=== PATIENT | female | born 1995 | race American Indian/Alaskan Native ===

== ENCOUNTER 2017-06-14 18:50 | Outpatient (CLI) | payer MEDICAID, OTHER ==
[2017-06-14 19:18] VITALS: BP 116/74
--- NOTE | 2017-06-14 21:45 | Ultrasound Report ---
FINAL REPORT PROCEDURE: US OB BPP WO NON-STRESS TECHNIQUE: Sonographic evaluation for breathing, movement, tone, and amniotic fluid volume was performed. CPT 41119 HISTORY: DECREASED MOVEMENT COMPARISON: No prior studies are available for comparison. FINDINGS: Amniotic fluid volume: Normal-score 2. At least one vertical pocket > 2 cm or more in vertical axis. breathing: Normal-score 2. movement: Normal-score 2. tone: Normal. Score: 8 of 8. heart rate measures 123 beats per minute. IMPRESSION: Normal biophysical profile score.
== END 2017-06-14 20:50 | disposition home or self-care (01) ==
LOC: TRG 18:50
PROVIDERS: ATTEND Obstetrics & Gynecology
DX: O47.1 False labor at or after 37 completed weeks of gestation (principal); Z3A.38 38 weeks gestation of pregnancy
CPT/HCPCS: 76819

== ENCOUNTER 2017-07-02 14:49 | Inpatient (IN) | payer MEDICAID ==
[2017-07-02] MEDS ORDERED: LACTATED RINGERS 1,000 ML ONE (16:21)
[2017-07-02 16:33] LABS: Basophils % (Auto) 0.5 % (0.0-1.8); Eosinophils # (Auto) 0.1 K/mm3 (0.0-0.4); Eosinophils % (Auto) 1.1 % (0.0-4.3); Hematocrit 30.9 % (30.3-42.9); Hemoglobin 10.7 gm/dl (10.1-14.3); Lymphocytes # (Auto) 1.3 K/mm3 (1.2-5.4); Lymphocytes % (Auto) 19.8 % (13.4-35.0); Mean Corpuscular HGB Conc 35 % (30-34); Mean Corpuscular Hemoglobin 31 pg (28-32); Mean Corpuscular Volume 90 fl (79-97); Monocytes # (Auto) 0.7 K/mm3 (0.0-0.8); Monocytes % (Auto) 11.6 % (0.0-7.3); Platelet Count 204 K/mm3 (140-440); Red Blood Count 3.46 M/mm3 (3.65-5.03); Red Cell Distribution Width 13.4 % (13.2-15.2)
[2017-07-02 16:34] LABS: Bilirubin,Urine NEG (Negative); Blood,Urine NEG (Negative); Color,Urine Straw (Yellow); Nitrite,Urine NEG (Negative); Protein,Urine <15 mg/dL mg/dL (Negative); Urobilinogen,Urine < 2.0 mg/dL (<2.0); WBC,Urine < 1.0 /HPF (0.0-6.0)
[2017-07-02 16:41] LABS: Amphetamine Screen,Urine PRESUMPTIVE NEGATIVE; Benzodiazepines Screen,Urine PRESUMPTIVE NEGATIVE; Cannabinoid Screen,Urine PRESUMPTIVE NEGATIVE; Cocaine Screen,Urine PRESUMPTIVE NEGATIVE; Methadone Screen,Urine PRESUMPTIVE NEGATIVE; Opiate Screen,Urine PRESUMPTIVE NEGATIVE
[2017-07-02 16:56] LABS: Rubella IgG Antibody Immune (Immune)
[2017-07-02 16:58] LABS: Hepatitis C Virus Antibody Non-Reactive (NonReactive)
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
[2017-07-02] MEDS ORDERED: MINERAL OIL PO PRN (18:20)
[2017-07-02] MEDS ORDERED: BRETHINE SUB-Q PRN (18:20)
[2017-07-02] MEDS ORDERED: ePHEDrine SULFATE IV PRN (18:20)
[2017-07-02] MEDS ORDERED: ZOFRAN IV PRN (18:20)
[2017-07-02] MEDS ORDERED: XYLOCAINE 2% INFILTRATI ONE (18:20)
--- NOTE | 2017-07-02 18:42 | Ultrasound Report ---
FINAL REPORT EXAM: US OB BPP WO NON-STRESS HISTORY: wellbeing TECHNIQUE: Sonographic images were performed Comparison: 06/14/2017 at which time biophysical profile score was 8/8 FINDINGS: Biophysical profile score 6/8. 0 awarded for movement. IMPRESSION: Biophysical profile score 6/8. 0 awarded for movement. INNA 5.6 centimeters. Oligohydramnios. Two vessel cord. Anterior placenta. The inferior margin is not well delineated but the cervical length images do not show previa or marginal placenta. Critical level 1 result. Findings are discussed with Suzanne Hylton nurse exploration driller on 07/02/2017 at 1838 hours.
--- NOTE | 2017-07-02 18:45 | Ultrasound Report ---
FINAL REPORT EXAM: US OB > = 14 WEEKS FETUS HISTORY: wellbeing TECHNIQUE: Obstetrical sonographic imaging was performed Comparison: 06/14/2017 at which time biophysical profile score was 8/8, estimated due date was 06/27/2017 FINDINGS: Images demonstrate single live intrauterine gestation in cephalic presentation. Anterior grade 1 placenta. Inferior placental tip is not seen to be marginal or previa based on the cervical length images. Decreased INNA 5.6 centimeters compatible with oligohydramnios. heart rate measures 141 beats per minute. Cervical length measures 2.8 centimeters. measurements with estimated gestational age as follows: Biparietal diameter 9.4 centimeters, 38 weeks 1 day Head circumference 34.2 centimeters, 39 weeks 2 days Abdominal circumference 33.5 centimeters, 37 weeks 3 days Femur length 7.1 centimeters, 36 weeks 2 days Average ultrasonographic gestational age is 37 weeks 6 days with estimated due date 07/17/2017 by today's exam. HC/AC 1.02 Cephalic index 81.1. Estimated weight 3213 grams +/-470 6 grams which is 13th percentile per the Hadlock criteria. There appears to be a 2 vessel cord. Limited anatomic survey includes the spine limited, stomach, kidneys, 2 vessel cord, 4 chamber heart. There is poor visualization of the lateral ventricles. Posterior fossa is also incompletely assessed due to the patient's gestational age. IMPRESSION: Oligohydramnios at 5.6 centimeter calculated INNA. Single live intrauterine gestation in the cephalic presentation with anterior grade 1 placenta. No previa or marginal placenta identified. The cervical images do not show placenta. Cervix length measures 2.8 centimeters. 2 vessel cord. Average ultrasonographic gestational age on today's exam is 37 weeks 6 days which may be due to asymmetric IUGR with significantly shorter femur length and borderline asymmetric IUGR with low weight. Per the Hadlock criteria, the weight is 13th percentile. Separately reported biophysical profile score 6/8. Critical level 1 report. Findings are called and discussed on 07/02/2017 at 1832 hours with Suzanne Hylton.
--- NOTE | 2017-07-02 18:49 | Event Note ---
Date: 07/02/17 (proceed with repeat section) Preop orders in EMR Pt consented. NICU and Anesthesia notified c/s @ 2100.
[2017-07-02] MEDS: LACTATED RINGERS 1,000 ML IV SCH ×3 (18:59→22:48)
[2017-07-02] MEDS ORDERED: ANCEF/STERILE WATER 2 GM/20 ML 2 GM/20 ML SYRINGE IV NR (19:00)
[2017-07-02] MEDS ORDERED: REGLAN IV ONE (19:00)
[2017-07-02] MEDS ORDERED: PITOCin/NS 20 UNIT/1000ML DRIP 20 UNITS/1,000 ML BAG IV SCH (19:00)
[2017-07-02] MEDS ORDERED: PEPCID IV ONE (19:00)
[2017-07-02] MEDS ORDERED: BICITRA PO ONE (19:00)
--- NOTE | 2017-07-02 22:45 | Event Note ---
Date: 07/02/17 c/s delayed due to other emergent c/s that have come from the floor and triage. Pt still with Cat II tracing at times so will proceed with c/s when time and staffing permits. Currently tracing is cat I.
[2017-07-02] MEDS ORDERED: SUBLIMAZE IV ONE (22:47)
[2017-07-03] MEDS ORDERED: NACL 0.9% IR ONE (00:35)
[2017-07-03] MEDS ORDERED: WATER FOR IRRIG STERILE IR ONE (00:35)
[2017-07-03] MEDS ORDERED: DIPRIVAN 10 MG/ML IV ONE (00:50)
[2017-07-03] MEDS ORDERED: METHERGINE IM ONE ×2 (00:56→06:00)
[2017-07-03] MEDS ORDERED: NARCAN 0.4 MG/1 ML IV PRN (01:39)
[2017-07-03] MEDS ORDERED: TORADOL IV PRN (01:39)
[2017-07-03] MEDS ORDERED: MYLICON PO PRN (01:39)
[2017-07-03] MEDS ORDERED: LANSINOH TP PRN (01:39)
[2017-07-03] MEDS ORDERED: TUCKS PAD TP PRN (01:39)
--- NOTE | 2017-07-03 01:46 | Operative Report ---
Operative Report Operative Report: Date of procedure: 07/03/2017 Pre-operative diagnosis: 40-6/7 weeks gestation Oligohydramnios Insufficient care in the third trimester Previous section IUGR Post-operative diagnosis: Same Procedure name(s): Repeat low transverse section via Pfannenstiel skin incision Surgeon: Dr. Merida Advertising Photographer: ORLANDO Anesthesia: Combined spinal epidural EBL: 600 mL Urine output: 150 mL of clear urine out at the end of the procedure Fluids: 1 L Findings: Liveborn male weight 6 lbs. 10 oz. Apgars of 8 and 9 at one and 5 minutes Grossly normal fallopian tubes and ovaries bilaterally Indications: Patient presents to triage stating that she wants to be delivered in that she had decreased movement. Evaluation yielded a BPP of 6 and 8 with an INNA of 5 as well as asymmetrical growth restriction. Decision made at this time to proceed with delivery. Given patient has had previous section with no medical records available decision was made to proceed with repeat section. Patient has relocated to [place] from [place] and had not had any care since May. Procedure: Patient was taking to the operating room. Patient was then prepped and draped in sterile fashion after anesthesia was found to be adequate. A low transverse skin incision was made with the scalpel through previous incisional scar and carried down to the underlying layer of fascia with the Bovie. The fascia was then incised in the midline and this incision was extended bilaterally with the Bovie. The superior aspect of the fascia was grasped with Andre clamps tented upward and dissected off of the anterior rectus muscles with the scalpel. In similar fashion the inferior aspect of the fascia was grasped with Andre clamps tented upward and dissected off of the anterior rectus muscles. The rectus muscles were then bluntly divided in the midline. The peritoneum was identified and entered into sharply. The bladder blade was placed. The bladder blade was replaced. A lower transverse uterine incision was made with the scalpel and extended bilaterally with the dissection. Artificial rupture of membranes was performed yielding lightly meconium-stained fluid. The 's head was then delivered atraumatically. The anterior shoulder and rest of infant delivered without difficulty. The umbilical cord was clamped x2. The cord was cut. The infant was then placed in sterile bassinet. The cord blood was collected. The placenta was manually extracted in its entirety. The uterus was exteriorized and cleared of all clots and debris. The uterine incision was closed using 0 Vicryl in a running locking fashion. A second imbricating layer of the same suture was then created. The posterior cul-de-sac was copiously irrigated. The uterus was returned to the abdomen. The gutters were also irrigated. The anterior rectus muscles were reapproximated using 3-0 Vicryl. The anterior rectus fascia was reapproximated using 0 Vicryl in a running fashion. The subcuticular fat was reapproximated using 2-0 Vicryl in a running fashion. The skin was reapproximated with 4-0 Monocryl in a subcuticular stitch. The patient tolerated the procedure well. Sponge lap and needle counts were all correct x3. Patient was taken to the recovery room awake and in stable condition.
[2017-07-03] MEDS ORDERED: SODIUM CHLORIDE FLUSH SYRINGE 10 ML IV NR (02:00)
[2017-07-03] MEDS ORDERED: D5LR 1,000 ML IV SCH (02:00)
[2017-07-03] MEDS: ANCEF/NS 1 GM/50 ML 1 GM/50 ML BAG IV SCH ×2 (09:17→17:31)
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
[2017-07-03 13:43] LABS: Hematocrit 31.5 % (30.3-42.9); Hemoglobin 10.9 gm/dl (10.1-14.3)
[2017-07-03] MEDS ORDERED: ceFAZolin 1 GM in NACL 0.9% 20 ML IV ONE (18:00)
[2017-07-03] MEDS ORDERED: BENADRYL PO ONE (23:00)
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
[2017-07-04] MEDS: NORCO 5/325 PO PRN ×2 (11:02→17:56)
[2017-07-04] MEDS: MOTRIN PO PRN ×2 (12:27→20:29)
--- NOTE | 2017-07-05 08:18 | Discharge Summary ---
Providers - Providers Date of Admission: 07/02/17 14:50 Date of discharge: 07/05/17 (desires d/c home ) Attending physician: SANDY WALL Primary care physician: SANDY WALL Hospitalization Reason for admission: section Delivery: Procedure: repeat low transverse Incision: normal, dry, intact Other procedures: none complications: none Discharge diagnosis: IUP at term delivered baby: male Hospital course: uncomplicated c/s , w/o concern, lochia scant, H&H stable, VSSAF. Condition at discharge: Good Disposition: DC-01 TO HOME OR SELFCARE - Discharge Diagnoses (1) delivery delivered Status: Acute Plan - Discharge Medications Prescriptions: Docusate Sodium [Colace] 100 mg PO BID PRN #60 capsule PRN Reason: Constipation Ferrous Sulfate 325 mg PO DAILY #30 tablet.dr Ibuprofen 800 mg PO Q6HR #30 tablet Lidocain2.5%/Prilocai2.5% [Emla] 1 applic TP ONCE #1 tube oxyCODONE /ACETAMINOPHEN [Percocet 5/325] 1 tab PO Q4HR #30 tab - Provider Discharge Summary Activity: routine, no sex for 6 weeks, no heavy lifting 4 weeks, no strenuous exercise Diet: routine Instructions: routine Additional instructions: [] Smoking cessation referral if applicable(refer to patient education folder for contact #) [] Refer to [facility]'s [facility] Booklet Call your doctor immediately for: * Fever > 100.5 * Heavy vaginal bleeding ( >1 pad per hour) * Severe persistent headache * Shortness of breath * Reddened, hot, painful area to leg or breast * Drainage or odor from incision. * Keep incision clean and dry at all times and follow doctor's instructions regarding bathing/showering - Follow up plan Follow up: SANDY WALL MD [Primary Care Provider] - 7 Days (Congratulations! Please call [phone] to schedule your incision check and your son's circumcision in 1 week. Bring EMLA cream to his appointment and await further instructions. Call for any questions or concerns. )
[2017-07-05 08:35] VITALS: BP 120/82
[2017-07-05] MEDS: NORCO 5/325 PO PRN (09:05)
== END 2017-07-05 15:00 | disposition home or self-care (01) | DRG 766 ==
LOC: TRG 14:49 → APU 14:50 → OB 07-03 03:04
PROVIDERS: ADMIT Obstetrics & Gynecology; ATTEND Obstetrics & Gynecology
PROC: 10D00Z1 Extraction of Products of Conception, Low, Open Approach (ICD-10-PCS; principal; 2017-07-03)
DX: O34.219 Maternal care for unspecified type scar from previous cesarean delivery (principal); O36.5990 Maternal care for other known or suspected poor fetal growth, unspecified trimester, not applicable or unspecified; Z3A.40 40 weeks gestation of pregnancy; Z37.0 Single live birth; O41.00X0 Oligohydramnios, unspecified trimester, not applicable or unspecified; O99.52 Diseases of the respiratory system complicating childbirth; J45.909 Unspecified asthma, uncomplicated; O76 Abnormality in fetal heart rate and rhythm complicating labor and delivery
CPT/HCPCS: 36415; 76805; 76819; 80307; 81001; 85014; 85018; 85025; 85660; 86592; 86706; 86762; 86803; 86850; 86900; 86901; 87806; 88307; 99211; G0463; J0690; J2210; J2405; J2590; J2704; J2765; J3010; J7120; J7121

== ENCOUNTER 2019-11-15 01:29 | Inpatient (IN) | payer OTHER ==
[2019-11-15] MEDS ORDERED: LACTATED RINGERS 1,000 ML ONE (02:56)
[2019-11-15] MEDS ORDERED: BICITRA ORAL LIQD 30ML PO ONE (03:53)
[2019-11-15] MEDS ORDERED: METOCLOPRAMIDE 10 MG/2 ML INJ IV ONE (03:53)
[2019-11-15] MEDS ORDERED: FAMOTIDINE 20 MG/2 ML INJ IV ONE (03:53)
[2019-11-15] MEDS ORDERED: BUTORPHANOL 2 MG/1 ML INJ IV ONE (03:55)
[2019-11-15] MEDS ORDERED: OXYTOCIN 20 UNIT/1000ML DRIP 20 UNITS/1,000 ML BAG IV SCH ×2 (04:00→05:00)
[2019-11-15] MEDS ORDERED: LACTATED RINGERS 1,000 ML IV SCH (04:00)
[2019-11-15] MEDS ORDERED: DEXMEDETOMIDINE 200 MCG/2 ML VIAL IV ONE (04:09)
[2019-11-15] MEDS ORDERED: METHYLERGONOVINE MALEATE 0.2 MG/ML VIAL IM ONE (04:15)
[2019-11-15] MEDS ORDERED: ONDANSETRON 4 MG/2 ML INJ IV PRN (04:18)
[2019-11-15] MEDS ORDERED: NALOXONE 0.4 MG/1 ML INJ IV PRN ×2 (04:18→04:43)
[2019-11-15] MEDS ORDERED: HYDROmorphone 1 MG/1 ML INJ IV PRN (04:18)
--- NOTE | 2019-11-15 04:18 | Anesthesia Consultation ---
Anesthesia Consult and Med Hx Date of service: 11/15/19 - Airway Anesthetic Teeth Evaluation: Good ROM Head & Neck: Adequate Mental/Hyoid Distance: Adequate Mallampati Class: Class II Intubation Access Assessment: Good - Pulmonary Exam CTA: Yes - Cardiac Exam Cardiac Exam: RRR - Pre-Operative Health Status ASA Pre-Surgery Classification: ASA2 Proposed Anesthetic Plan: Epidural - Pulmonary Hx Smoking: No Hx Asthma: Yes (last attack 2014) Hx Respiratory Symptoms: No SOB: No COPD: No Home Oxygen Therapy: No Hx Pneumonia: No Hx Sleep Apnea: No - Cardiovascular System Hx Hypertension: No Hx Coronary Artery Disease: No Hx Heart Attack/AMI: No Hx Angina: No Hx Percutaneous Transluminal Coronary Angioplasty (PTCA): No Hx Cardia Arrhythmia: No Hx Pacemaker: No Hx Internal Defibrillator: No Hx Valvular Heart Disease: No Hx Heart Murmur: No Hx Peripheral Vascular Disease: No - Central Nervous System Hx Neuromuscular Disorder: No Hx Seizures: No CVA: No Hx Back Pain: No Hx Psychiatric Problems: No - Gastrointestinal Hx Ulcer: No Hx Gastroesophageal Reflux Disease: Yes - Endocrine Hx Renal Disease: No Hx End Stage Renal Disease: No Hx Cirrhosis: No Hx Liver Disease: No Hx Insulin Dependent Diabetes: No Hx Non-Insulin Dependent Diabetes: No Hx Thyroid Disease: No Hx Hypothyroidism: No Hx Hyperthyroidism: No - Hematic Hx Anemia: Yes Hx Sickle Cell Disease: No - Other Systems Hx Alcohol Use: No Hx Substance Use: No Hx Cancer: No Hx Obesity: No
--- NOTE | 2019-11-15 04:18 | Anesthesia Day of Surgery ---
Anesthesia Day of Surgery - Day of Surgery Patient Examined: Yes Patient H&P Reviewed: Yes Patient is NPO: Yes Beta Blockers: No Cardiac Clearance: No Pulmonary Clearance: No Dane's Test: N/A
[2019-11-15 04:22] LABS: Basophils % (Auto) 0.5 % (0.0-1.8); Eosinophils % (Auto) 0.3 % (0.0-4.3); Hematocrit 29.7 % (30.3-42.9); Hemoglobin 9.5 gm/dl (10.1-14.3); Lymphocytes # (Auto) 1.4 K/mm3 (1.2-5.4); Lymphocytes % (Auto) 19.5 % (13.4-35.0); Mean Corpuscular HGB Conc 32 % (30-34); Mean Corpuscular Volume 83 fl (79-97); Monocytes # (Auto) 0.9 K/mm3 (0.0-0.8); Monocytes % (Auto) 12.7 % (0.0-7.3); Platelet Count 256 K/mm3 (140-440); Red Blood Count 3.57 M/mm3 (3.65-5.03); Red Cell Distribution Width 16.2 % (13.2-15.2)
[2019-11-15] MEDS ORDERED: ceFAZolin/STERILE WATER 2 GM/20 ML SYRINGE IV ONE (04:39)
--- NOTE | 2019-11-15 04:41 | Procedure Note ---
OB Delivery Note - Delivery Date of Delivery: 11/15/19 Surgeon: PHUC RYAN Estimated blood loss: other (800 mL) - Section Preop diagnosis: repeat Postop diagnosis: same section procedure: section, repeat low transverse Disposition: PACU Complications: none - Infant A at 1 minute: 8 at 5 minutes: 9 Gender: Female (7 pounds 1 ounce)
--- NOTE | 2019-11-15 04:41 | History and Physical Report ---
History of Present Illness Date of examination: 11/15/19 Date of admission: November 15, 2019 Chief complaint: Contractions History of present illness: 24-year-old -0-0-2 at 41+2 weeks who presents to labor and delivery triage with a complaint of regular uterine contractions. The patient states she has received care at another facility. Her course is complicated by previous delivery x2. She denies leakage of fluid. Her GBS status is unknown. Past History Past Medical History: asthma Past Surgical History: section Social history: single - Obstetrical History Expected Date of Delivery: 11/06/19 Actual Gestation: 41 Week(s) 2 Day(s) : 3 Para: 2 Hx # Term Pregnancies: 2 Number of Pregnancies: 0 Spontaneous Abortions: 0 Induced : 0 Number of Living Children: 2 Medications and Allergies Allergies Allergy/AdvReac Type Severity Reaction Status Date / Time No Known Allergies Allergy Verified 06/14/17 20:05 Home Medications Medication Instructions Recorded Confirmed Last Taken Type Docusate Sodium [Colace] 100 mg PO BID PRN #60 capsule 07/02/17 Unknown Rx Lidocain2.5%/Prilocai2.5% [Emla] 1 applic TP ONCE #1 tube 07/02/17 Unknown Rx RX: Ferrous Sulfate 325 mg PO DAILY #30 tablet.dr 07/02/17 Unknown Rx RX: Ibuprofen 800 mg PO Q6HR #30 tablet 07/02/17 Unknown Rx oxyCODONE /ACETAMINOPHEN [Percocet 1 tab PO Q4HR #30 tab 07/02/17 Unknown Rx 5/325] Active Meds: Active Medications Cefazolin Sodium (Ancef/Sterile Water 2 Gm/20 Ml) 2 gm IV PREOP NR Stop: 11/15/19 05:01 Hydromorphone HCl (Dilaudid) 0.5 mg IV Q5M PRN PRN Reason: BREAK Stop: 11/15/19 23:59 Oxytocin/Sodium Chloride (Pitocin/Ns 20 Unit/1000ml Drip) 20 units in 1,000 mls @ 0 mls/hr IV TITR SAMIR Lactated Ringer's (Lactated Ringers) 1,000 mls @ 2,250 mls/hr IV PREOP SAMIR Stop: 11/16/19 04:27 Naloxone HCl (Naloxone) 0.2 mg IV Q2MIN PRN PRN Reason: Res Rate </= 8 or 02 SAT < 92% Ondansetron HCl (Zofran) 4 mg IV Q8H PRN PRN Reason: Nausea And Vomiting Review of Systems All systems: negative Genitourinary: pelvic pain, contractions, no leakage of fluid - Vital Signs Vital signs: Vital Signs Pulse BP 82 118/76 11/15/19 01:52 11/15/19 01:52 Temp Pulse Resp BP Pulse Ox 97.7 F 86 18 139/87 11/15/19 03:09 11/15/19 04:21 11/15/19 03:09 11/15/19 04:21 - Physical Exam Breasts: Positive: deferred Cardiovascular: Regular rate Lungs: Positive: Clear to auscultation Abdomen: Positive: normal appearance Results Result Diagrams: 11/15/19 02:00 Abnormal lab results 11/15/19 Range/Units 02:00 RBC 3.57 L (3.65-5.03) M/mm3 Hgb 9.5 L (10.1-14.3) gm/dl Hct 29.7 L (30.3-42.9) % MCH 27 L (28-32) pg RDW 16.2 H (13.2-15.2) % Hardeman % (Auto) 12.7 H (0.0-7.3) % [place]eman # 0.9 H (0.0-0.8) K/mm3 All other labs normal. Assessment and Plan - Patient Problems (1) Previous delivery affecting Current Visit: Yes Status: Acute Plan to address problem: Will proceed with a repeat delivery (2) Post-term Current Visit: Yes Status: Acute (3) Active labor at term Current Visit: Yes Status: Acute
--- NOTE | 2019-11-15 04:42 | Operative Report ---
Operative Report Operative Report: Date of surgery: November 15, 2019 Preoperative diagnosis: at 41+2 weeks; active labor at term; previous delivery Postoperative diagnosis: Same as above Procedure: Repeat low transverse delivery Surgeon: Amanda Kim M.D. Anesthesia: Regional Estimated blood loss: 800 mL IV fluids 500 mL Urine output: 250 mL Findings: Liveborn female infant with Apgars of 8 and 9 weight 7 pounds 1 ounce Indications: 24-year-old -0-0-2 at 41+2 weeks who presents in active labor with a history of a previous delivery x2. Procedure: The patient was taken to the operating room and given regional anesthesia without complication. She was prepped and draped in a normal sterile fashion. A Pfannenstiel skin incision was made down to layer the fascia which was nicked in the midline extended laterally with the Bovie cautery. The superior aspect of the rectus fascia was grasped with Chesterfield clamps x2 and the rectus muscles off sharply. This was done in inferior fashion as well. The rectus muscle midline and peritoneum entered bluntly. An Kodak retractor was then inserted. A bladder blade was placed. The vesicouterine peritoneum was then entered sharply with Metzenbaum scissors. A bladder flap was created digitally. A low transverse uterine incision was then made and extended digitally. There was clear fluid upon entry into the uterine cavity. A Kiwi vacuum was applied to the head for delivery. The head was delivered through the incision with fundal pressure. The cord was clamped and cut x2 and was passed off to pediatrics. The placenta was then manually extracted. The uterus was then exteriorized and cleared of clots and debris. The uterine incision was then closed in a running locked fashion with 0 Vicryl additional imbricating stitch was applied for 2 layer closure. The posterior cul-de-sac was then copiously irrigated. The uterus was replaced back into the abdomen and pelvis were the gutters were then irrigated. The Kodak retractor was then removed. The peritoneum was then reapproximated with 3-0 Vicryl incorporating the rectus muscle. The fascia was then closed with 0 Vicryl in a running fashion. The skin was then reapproximated with 3-0 Monocryl on a Jose needle subcuticular fashion. Steri-Strips to place across the incision and a Crede procedures performed at the end of the surgery. A pressure dressing was applied to the incision. The surgery productive of a liveborn female with Apgars of 8 and 9 weight 7 pounds 1 ounce. The patient was taken to the recovery room in stable condition. All sponge laps and needle counts correct x2.
[2019-11-15] MEDS ORDERED: LANOLIN/ZINC/DIMETHICONE (LANSINOH) 7 GM TP PRN (04:43)
[2019-11-15] MEDS ORDERED: WITCH HAZEL/ GLYCERIN PAD TP PRN (04:43)
[2019-11-15] MEDS ORDERED: MAGNESIUM HYDROXIDE (MOM) ORAL LIQD UDC PO PRN (04:43)
[2019-11-15] MEDS ORDERED: ACETAMINOPHEN 325 MG TAB PO PRN (04:43)
[2019-11-15] MEDS ORDERED: ceFAZolin/STERILE WATER 2 GM/20 ML SYRINGE IV NR (05:00)
[2019-11-15] MEDS ORDERED: ONDANSETRON 4 MG/2 ML INJ ONE (05:33)
--- NOTE | 2019-11-15 06:11 | Post Anesthesia Evaluation ---
- Post Anesthesia Evaluation Patient Participated: Yes Airway Patent: Yes Stable Respiratory Function: Yes Nausea/Vomiting: No Temp > 96.8F: Yes Pain Manageable: Yes Adequeate Hydration: Yes Anesthesia Complications: No Block Receding Appropriately: Yes Patient on Ventilator: No
[2019-11-15] MEDS: KETOROLAC 30 MG/1 ML INJ IV PRN ×2 (11:35→17:30)
[2019-11-15] MEDS: D5W/LACTATED RINGERS 1,000 ML IV SCH ×2 (11:37→15:56)
[2019-11-15 17:58] LABS: Hematocrit 28.6 % (30.3-42.9); Hemoglobin 9.3 gm/dl (10.1-14.3)
[2019-11-15] MEDS: oxyCODONE /ACETAMINOPHEN 5-325MG TAB PO PRN (20:36)
[2019-11-16] MEDS: KETOROLAC 30 MG/1 ML INJ IV PRN (03:09)
--- NOTE | 2019-11-16 07:49 | Progress Note ---
Assessment and Plan A: POD#1 s/p repeat at term, Acute on chronic anemia, Gestational HTN P: PIH panel pending. Monitor BP curve. Routine postop care. Subjective - Subjective Date of service: 11/16/19 Principal diagnosis: s/p repeat at term Interval history: No issues overnight. Patient reports: appetite normal, voiding normally, pain well controlled, flatus, ambulating normally, no bowel movement [place]: doing well Objective - Vital Signs Latest vital signs: Vital Signs Temp Pulse Resp BP BP Pulse Ox 11/16/19 06:05 98.4 F 81 18 125/93 100 11/16/19 03:09 20 11/16/19 00:20 97.6 F 68 18 135/90 100 11/15/19 20:39 98.2 F 18 136/84 11/15/19 17:30 20 11/15/19 16:18 97.8 F 82 20 124/88 100 11/15/19 12:36 97.5 F L 71 20 108/78 100 11/15/19 11:36 20 11/15/19 11:35 20 11/15/19 09:21 97.3 F L 11/15/19 08:41 64 20 122/78 94 Intake and Output 11/15/19 11/16/19 11/16/19 22:59 06:59 14:59 Intake Total 899.583 360 Output Total 2300 600 Balance -1400.417 -240 Intake: IV 539.583 D5lr 1,000 ml @ 125 mls/ 539.583 hr IV DIRECT SAMIR Rx#: [id number] Oral 360 240 Intake, Free Water 120 Output: Urine 2300 600 Indwelling Catheter 1600 Void 700 600 Other: Total, Intake Amount 360 240 Total, Output Amount 700 600 Voiding Method Toilet - Exam Breasts: Present: deferred Abdomen: Present: soft, distention (mild ) Uterus: Present: fundal height at umbilicus Extremities: Present: normal Incision: Present: dressed - Labs Labs: Abnormal lab results 11/15/19 Range/Units 16:40 Hgb 9.3 L (10.1-14.3) gm/dl Hct 28.6 L (30.3-42.9) %
[2019-11-16 07:57] LABS: Hematocrit 28.1 % (30.3-42.9); Hemoglobin 9.1 gm/dl (10.1-14.3); Mean Corpuscular HGB Conc 33 % (30-34); Mean Corpuscular Volume 82 fl (79-97); Platelet Count 234 K/mm3 (140-440); Red Blood Count 3.42 M/mm3 (3.65-5.03); Red Cell Distribution Width 16.5 % (13.2-15.2)
[2019-11-16 08:16] LABS: Alanine Aminotransferase 11 units/L (7-56); Uric Acid 2.5 mg/dL (3.5-7.6)
[2019-11-16] MEDS: oxyCODONE /ACETAMINOPHEN 5-325MG TAB PO PRN ×2 (09:09→17:15)
[2019-11-16] MEDS: diphenhydrAMINE 25 MG CAP PO PRN ×2 (12:36→20:20)
[2019-11-16] MEDS: IBUPROFEN 800 MG TAB PO PRN (13:48)
[2019-11-17] MEDS: oxyCODONE /ACETAMINOPHEN 5-325MG TAB PO PRN ×2 (01:11→11:00)
[2019-11-17] MEDS: IBUPROFEN 800 MG TAB PO PRN ×2 (05:37→17:15)
--- NOTE | 2019-11-17 13:34 | Progress Note ---
Assessment and Plan POD 2 s/p ltcs at term. Pt is doing well. Pt states that she is ready to go home today. Subjective - Subjective Date of service: 11/17/19 Principal diagnosis: s/p repeat at term Interval history: pt has no complaints Patient reports: appetite normal, voiding normally, pain well controlled, flatus, ambulating normally [place]: doing well Objective - Vital Signs Latest vital signs: Vital Signs Temp Pulse Resp BP Pulse Ox 11/17/19 07:30 98.3 F 76 16 115/82 99 11/16/19 23:23 98.2 F 79 20 115/69 100 11/16/19 16:03 98.2 F 63 16 121/81 100 Intake and Output 11/16/19 11/17/19 11/17/19 22:59 06:59 14:59 Intake Total 480 240 720 Balance 480 240 720 Intake: Oral 240 240 240 Intake, Free Water 240 480 Other: Total, Intake Amount 240 240 240 # Voids Void 1 1 1 - Exam Breasts: Present: deferred Cardiovascular: Present: Regular rate, Normal S1, Normal S2 Lungs: Present: Clear to auscultation, Normal air movement Abdomen: Present: normal appearance, soft Vulva: both: normal Uterus: Present: normal, firm, fundal height below umbilicus Extremities: Present: normal Incision: Present: normal, dry, intact
--- NOTE | 2019-11-17 13:36 | Discharge Summary ---
Providers - Providers Date of Admission: 11/15/19 04:43 Date of discharge: 11/17/19 Attending physician: PHUC RYAN Primary care physician: TUBE TRAILER FILLER Hospitalization Reason for admission: active labor, section Delivery: Procedure: repeat low transverse Incision: normal, dry, intact complications: none Discharge diagnosis: IUP at term delivered baby: female Hospital course: unremarkable Condition at discharge: Good Disposition: DC-01 TO HOME OR SELFCARE Plan - Discharge Medications Prescriptions: Ferrous Sulfate [Feosol 325 MG tab] 325 mg PO BID #60 tablet Ferrous Sulfate [Feosol 325 MG tab] 325 mg PO BID #60 tablet Ibuprofen [Motrin] 600 mg PO Q6H PRN #60 tablet PRN Reason: Pain Ibuprofen [Motrin] 800 mg PO Q8HR PRN #30 tablet PRN Reason: Pain, Moderate (4-6) oxyCODONE /ACETAMINOPHEN [Percocet 5/325] 1 tab PO Q6HR PRN #40 tablet PRN Reason: Pain - Provider Discharge Summary Activity: routine, no sex for 6 weeks, no heavy lifting 4 weeks, no strenuous exercise Diet: routine Instructions: routine Additional instructions: [] Smoking cessation referral if applicable(refer to patient education folder for contact #) [] Refer to [facility] Booklet Call your doctor immediately for: * Fever > 100.5 * Heavy vaginal bleeding ( >1 pad per hour) * Severe persistent headache * Shortness of breath * Reddened, hot, painful area to leg or breast * Drainage or odor from incision. * Keep incision clean and dry at all times and follow doctor's instructions regarding bathing/showering - Follow up plan Follow up: MALLORY HIRSCH MD [Staff Physician] - 14 Days PRIMARY MD KARON [Primary Care Provider] -
[2019-11-17 17:11] VITALS: BP 136/97
== END 2019-11-17 18:00 | disposition home or self-care (01) | DRG 766 ==
LOC: TRG 01:29 → APU 01:45 → TRG 04:43 → APU 04:43 → OB 08:44
PROVIDERS: ADMIT Obstetrics & Gynecology; ATTEND Obstetrics & Gynecology
PROC: 10D00Z1 Extraction of Products of Conception, Low, Open Approach (ICD-10-PCS; principal; 2019-11-15)
DX: O34.211 Maternal care for low transverse scar from previous cesarean delivery (principal); O48.0 Post-term pregnancy; Z3A.41 41 weeks gestation of pregnancy; Z37.0 Single live birth; O99.52 Diseases of the respiratory system complicating childbirth; J45.909 Unspecified asthma, uncomplicated; D50.0 Iron deficiency anemia secondary to blood loss (chronic); O99.02 Anemia complicating childbirth
CPT/HCPCS: 36415; 82565; 83615; 84450; 84460; 84550; 85014; 85018; 85025; 85027; 86592; 86706; 86762; 86850; 86900; 86901; 87517; 87806; G0378; J0595; J0690; J1885; J2210; J2405; J2590; J2765; J3490; J7120; J7121

== ENCOUNTER 2021-12-18 12:48 | Inpatient (IN) | payer SELFPAY ==
[2021-12-18] MEDS ORDERED: LACTATED RINGERS 1,000 ML ONE ×2 (13:24→13:25)
--- NOTE | 2021-12-18 14:04 | Anesthesia Day of Surgery ---
Anesthesia Day of Surgery - Day of Surgery Patient Examined: Yes Patient H&P Reviewed: Yes Patient is NPO: Yes
[2021-12-18] MEDS ORDERED: BICITRA ORAL LIQD 30ML PO SCH (14:07)
[2021-12-18] MEDS ORDERED: FAMOTIDINE 20 MG/2 ML INJ IV SCH (14:07)
[2021-12-18] MEDS ORDERED: METOCLOPRAMIDE 10 MG/2 ML INJ IV SCH (14:07)
--- NOTE | 2021-12-18 14:08 | Anesthesia Consultation ---
Anesthesia Consult and Med Hx Date of service: 12/18/21 - Airway Anesthetic Teeth Evaluation: Poor ROM Head & Neck: Adequate Mental/Hyoid Distance: Adequate Mallampati Class: Class II Intubation Access Assessment: Probably Good - Pulmonary Exam CTA: Yes - Cardiac Exam Cardiac Exam: RRR - Pre-Operative Health Status ASA Pre-Surgery Classification: ASA2 Proposed Anesthetic Plan: Spinal - Pulmonary Hx Smoking: No Hx Asthma: Yes (has not used inhaler in years) Hx Respiratory Symptoms: No SOB: No COPD: No Hx Pneumonia: No Hx Sleep Apnea: No - Cardiovascular System Hx Hypertension: No Hx Coronary Artery Disease: No Hx Heart Attack/AMI: No Hx Angina: No Hx Percutaneous Transluminal Coronary Angioplasty (PTCA): No Hx Cardia Arrhythmia: No Hx Pacemaker: No Hx Internal Defibrillator: No Hx Valvular Heart Disease: No Hx Heart Murmur: No Hx Peripheral Vascular Disease: No - Central Nervous System Hx Neuromuscular Disorder: No Hx Seizures: No CVA: No Hx Back Pain: No Hx Psychiatric Problems: No - Gastrointestinal Hx Ulcer: No Hx Gastroesophageal Reflux Disease: Yes - Endocrine Hx Renal Disease: No Hx End Stage Renal Disease: No Hx Cirrhosis: No Hx Liver Disease: No Hx Insulin Dependent Diabetes: No Hx Non-Insulin Dependent Diabetes: No Hx Thyroid Disease: No Hx Hypothyroidism: No Hx Hyperthyroidism: No - Hematic Hx Anemia: Yes Hx Sickle Cell Disease: No - Other Systems Hx Alcohol Use: No Hx Substance Use: Yes (smoke marijuana daily) Hx Cancer: No Hx Obesity: No - Additional Comments Anesthesia Medical History Comments: PSH: CSECTION X 4, RT ARM SURGERY
[2021-12-18] MEDS ORDERED: LACTATED RINGERS 1,000 ML IV SCH (14:15)
[2021-12-18 14:17] LABS: Basophils % (Auto) 0.3 % (0.0-1.8); Hematocrit 28.8 % (30.3-42.9); Hemoglobin 9.5 gm/dl (10.1-14.3); Lymphocytes % (Auto) 12.1 % (13.4-35.0); Mean Corpuscular HGB Conc 33 % (30-34); Mean Corpuscular Volume 82 fl (79-97); Monocytes # (Auto) 0.5 K/mm3 (0.0-0.8); Monocytes % (Auto) 5.8 % (0.0-7.3); Platelet Count 291 K/mm3 (140-440); Red Blood Count 3.51 M/mm3 (3.65-5.03); Red Cell Distribution Width 15.4 % (13.2-15.2)
[2021-12-18] MEDS ORDERED: OXYTOCIN DRIP 30 UNITS/500 ML BAG IV SCH (15:00)
[2021-12-18] MEDS ORDERED: ceFAZolin/Water 2 GM/20 ML 2 GM/20 ML SYRINGE IV SCH (15:00)
[2021-12-18] MEDS ORDERED: LIDOCAINE (2%) 20 MG/1 ML VIAL 20 ML MDV INFILTRATI ONE (15:18)
[2021-12-18] MEDS ORDERED: WITCH HAZEL/ GLYCERIN PAD TP PRN (15:46)
[2021-12-18] MEDS ORDERED: LANOLIN/ZINC/DIMETHICONE (LANSINOH) 7 GM TP PRN (15:46)
--- NOTE | 2021-12-18 15:54 | History and Physical Report ---
History of Present Illness Date of examination: 12/18/21 Date of admission: 12/18/21 15:36 Chief complaint: Painful contractions at 40 weeks. History of present illness: . x4 previous cesareans. CIARA 12/23/21. Having regular painful contractions with pressure in her rectum. Past History Past Medical History: no pertinent history Past Surgical History: section - Obstetrical History Expected Date of Delivery: 12/23/21 Actual Gestation: 39 Week(s) 2 Day(s) : 5 Medications and Allergies Allergies Allergy/AdvReac Type Severity Reaction Status Date / Time No Known Allergies Allergy Verified 10/23/20 11:43 Home Medications Medication Instructions Recorded Confirmed Last Taken Type Docusate Sodium [Colace] 100 mg PO BID PRN #60 capsule 07/02/17 10/22/20 Unknown Rx Ferrous Sulfate 325 mg PO DAILY #30 tablet. 07/02/17 10/22/20 Unknown Rx Ibuprofen 800 mg PO Q6HR #30 tablet 07/02/17 10/22/20 Unknown Rx Lidocain2.5%/Prilocai2.5% [Emla] 1 applic TP ONCE #1 tube 07/02/17 10/22/20 Unknown Rx oxyCODONE /ACETAMINOPHEN [Percocet 1 tab PO Q4HR #30 tab 07/02/17 10/22/20 Unknown Rx 5/325] Ferrous Sulfate [Feosol 325 MG tab] 325 mg PO BID #60 tablet 11/15/19 10/22/20 Unknown Rx Ibuprofen [Motrin] 600 mg PO Q6H PRN #60 tablet 11/15/19 10/22/20 Unknown Rx Ferrous Sulfate [Feosol 325 MG tab] 325 mg PO BID #60 tablet 11/16/19 10/22/20 Unknown Rx Ibuprofen [Motrin] 800 mg PO Q8HR PRN #30 tablet 11/16/19 10/22/20 Unknown Rx oxyCODONE /ACETAMINOPHEN [Percocet 1 tab PO Q6HR PRN #40 tablet 11/16/19 10/22/20 Unknown Rx 5/325] HYDROcodone/APAP 5-325 [Groom 1 each PO Q4HR PRN 7 Days #20 10/22/20 Unknown Rx 5/325] tablet Active Meds: Active Medications Acetaminophen (Acetaminophen 325 Mg Tab) 650 mg PO Q4H PRN PRN Reason: Pain MILD(1-3)/Fever >100.5/SPENCER Hydrocodone Bitart/Acetaminophen (Hydrocodone/Acetaminophen 5-325 Mg Tab) 2 each PO Q6H PRN PRN Reason: Pain, Moderate (4-6) Bisacodyl (Bisacodyl 10 Mg Rect Supp) 10 mg DE BID PRN PRN Reason: Constipation Citric Acid/Sodium Citrate (Bicitra Oral Liqd 30ml) 30 ml PO ONCE SAMIR Diphenhydramine HCl (Diphenhydramine 25 Mg Cap) 25 mg PO Q6H PRN PRN Reason: Itching Famotidine (Famotidine 20 Mg/2 Ml Inj) 20 mg IV ONCE SAMIR Lactated Ringer's (Lactated Ringers) 1,000 mls @ 2,250 mls/hr IV PREOP SAMIR Stop: 12/19/21 14:42 Oxytocin/Sodium Chloride (Pitocin/Ns 30 Unit/500ml) 30 units in 500 mls @ 0 mls/hr IV TITRATED SAMIR; Protocol Stop: 12/20/21 15:00 Cefazolin Sodium (Ancef/Sterile Water 2 Gm/20 Ml) 2 gm in 20 mls @ 80 mls/hr IV PREOP SAMIR; Protocol Ibuprofen (Ibuprofen 800 Mg Tab) 800 mg PO Q6H SAMIR Magnesium Hydroxide (Magnesium Hydroxide (Mom) Oral Liqd Udc) 30 ml PO HS PRN PRN Reason: Constipation Metoclopramide HCl (Metoclopramide 10 Mg/2 Ml Inj) 10 mg IV ONCE SAMIR Multi-Ingredient Ointment (Lanolin/Zinc/Dimethicone (Lansinoh) 7 Gm) 1 applic TP PRN PRN PRN Reason: Sore Nipples Multivitamins/Iron/Calcium ( Ttj68-Mg Fumarate-Folic Acid Vit Tab) 1 each PO QDAY SAMIR Ondansetron HCl (Ondansetron 4 Mg/2 Ml Inj) 4 mg IV Q8H PRN PRN Reason: Nausea And Vomiting Promethazine HCl (Promethazine 25 Mg Rect Supp) 25 mg DE Q6H PRN PRN Reason: Nausea And Vomiting Promethazine HCl (Promethazine 25 Mg Tab) 25 mg PO Q6H PRN PRN Reason: Nausea And Vomiting Sodium Chloride (Sodium Chloride 0.9% 10 Ml Flush Syringe) 10 ml IV PRN NR Witch Dayan/Glycerin (Witch Dayan/ Glycerin Pad) 1 each TP PRN PRN PRN Reason: Hemorrhoid/cleansing/soothing Review of Systems All systems: negative Genitourinary: leakage of fluid, contractions - Physical Exam Lungs: Positive: Normal air movement Abdomen: Positive: normal appearance, distention Genitourinary (Female): Positive: normal external genitalia, normal perenium Vulva: both: normal Vagina: Positive: normal moisture. Negative: discharge Uterus: Positive: enlarged, normal contour Anus/Rectum: Positive: normal perianal skin, heme negative. Negative: rectal mass, hemorrhoids Extremities: Positive: normal Deep Tendon Reflex Grade: Normal +2 - Obstetrical FHR: auscultation normal Cervical Dilatation: 10 station: 0+3 Uterine Contraction Pattern: Regular Uterine Contraction Intensity: Strong/Firm Results Result Diagrams: 12/18/21 13:40 Abnormal lab results 12/18/21 Range/Units 13:40 RBC 3.51 L (3.65-5.03) M/mm3 Hgb 9.5 L (10.1-14.3) gm/dl Hct 28.8 L (30.3-42.9) % MCH 27 L (28-32) pg RDW 15.4 H (13.2-15.2) % Lymph % (Auto) 12.1 L (13.4-35.0) % Lymph # (Auto) 1.0 L (1.2-5.4) K/mm3 Seg Neutrophils % 81.8 H (40.0-70.0) % All other labs normal. Assessment and Plan - Patient Problems (1) Active labor at term Current Visit: Yes Status: Acute Plan to address problem: completed before patient could be taken to the OR. (2) 40 weeks gestation of Current Visit: No Status: Acute (3) Previous delivery affecting Current Visit: No Status: Acute
[2021-12-18 15:55] LABS: Basophils % (Auto) 0.2 % (0.0-1.8); Hematocrit 30.1 % (30.3-42.9); Hemoglobin 9.6 gm/dl (10.1-14.3); Mean Corpuscular HGB Conc 32 % (30-34); Mean Corpuscular Volume 83 fl (79-97); Monocytes # (Auto) 0.4 K/mm3 (0.0-0.8); Monocytes % (Auto) 5.6 % (0.0-7.3); Platelet Count 304 K/mm3 (140-440); Red Blood Count 3.65 M/mm3 (3.65-5.03); Red Cell Distribution Width 15.7 % (13.2-15.2)
--- NOTE | 2021-12-18 15:59 | Procedure Note ---
OB Delivery Note - Delivery Date of Delivery: 12/18/21 Surgeon: ALBAN ALMENDAREZ Estimated blood loss: 300cc - Vaginal Delivery presentation: vertex Delivery position: OA Intrapartum events: none Delivery induction: none Delivery monitor: external FHT Route of delivery: Delivery placenta: spontaneous, expressed Episiotomy: none Delivery laceration: 1st degree Delivery repair: other (No stitches needed on labia/hemostatic) - Infant A at 1 minute: 8 at 5 minutes: 9 Infant Gender: Male
[2021-12-18] MEDS ORDERED: PROMETHAZINE 25 MG TAB PO PRN (16:00)
[2021-12-18] MEDS ORDERED: PROMETHAZINE 25 MG RECT SUPP PR PRN (16:00)
[2021-12-18] MEDS ORDERED: ONDANSETRON 4 MG/2 ML INJ IV PRN (16:00)
[2021-12-18] MEDS ORDERED: HYDROcodone/ACETAMINOPHEN 5-325 MG TAB PO PRN (16:00)
[2021-12-18] MEDS ORDERED: ACETAMINOPHEN 325 MG TAB PO PRN (16:00)
[2021-12-18] MEDS ORDERED: diphenhydrAMINE 25 MG CAP PO PRN (16:00)
[2021-12-18 20:00] LABS: Bilirubin,Urine NEG (Negative); Blood,Urine LG (Negative); Color,Urine Red (Yellow); Urobilinogen,Urine < 2.0 mg/dL (<2.0)
[2021-12-18 20:01] LABS: Protein,Urine >500 mg/dL (Negative)
[2021-12-18 20:05] LABS: Mucus,Urine FEW /HPF
[2021-12-18 20:09] LABS: Amphetamine Screen,Urine Negative; Benzodiazepines Screen,Urine Negative; Cocaine Screen,Urine Negative; Methadone Screen,Urine Negative; Opiate Screen,Urine Negative
[2021-12-18 20:12] LABS: RBC,Urine > 182.0 /HPF (0.0-6.0)
[2021-12-18 20:44] LABS: Cannabinoid Screen,Urine Positive
[2021-12-18] MEDS ORDERED: MAGNESIUM HYDROXIDE (MOM) ORAL LIQD UDC PO PRN (22:00)
[2021-12-19 05:58] LABS: Hematocrit 23.7 % (30.3-42.9); Hemoglobin 7.5 gm/dl (10.1-14.3)
--- NOTE | 2021-12-19 09:24 | Progress Note ---
Assessment and Plan - Patient Problems (1) Active labor at term Current Visit: Yes Status: Resolved (2) 40 weeks gestation of Current Visit: No Status: Resolved (3) Previous delivery affecting Current Visit: No Status: Resolved (4) (vaginal after ) Current Visit: Yes Status: Acute Plan to address problem: Stable. Subjective - Subjective Date of service: 12/19/21 Principal diagnosis: day 1. Interval history: . x4 previous cesareans. CIARA 12/23/21. Having regular painful contractions with pressure in her rectum. 12/18/21 Patient reports: appetite normal, voiding normally, pain well controlled, ambulating normally [place]: doing well Objective - Vital Signs Latest vital signs: Vital Signs Temp Pulse Resp BP BP BP Pulse Ox 12/19/21 07:39 97.8 F 69 20 131/78 98 12/19/21 04:00 97.4 F L 74 16 116/75 12/19/21 03:52 20 12/19/21 00:30 98.0 F 90 18 127/86 97 12/18/21 20:00 98.3 F 86 14 98 12/18/21 15:25 97.7 F 18 Intake and Output 12/18/21 12/19/21 12/19/21 23:59 07:59 15:59 Intake Total 300 Output Total 1400 Balance -1100 Intake: Intake, Free Water 300 Output: Urine 1400 Void 1400 Other: Total, Output Amount 600 # Voids Void 1 - Exam Lungs: Present: Normal air movement Abdomen: Present: normal appearance, soft, normal bowel sounds Extremities: Present: normal Deep Tendon Reflex Grade: Normal +2 - Labs Labs: Abnormal lab results 12/18/21 12/18/21 12/18/21 Range/Units 13:40 13:40 Unknown RBC 3.51 L (3.65-5.03) M/mm3 Hgb 9.5 L 9.6 L (10.1-14.3) gm/dl Hct 28.8 L 30.1 L (30.3-42.9) % MCH 27 L 26 L (28-32) pg RDW 15.4 H 15.7 H (13.2-15.2) % Lymph % (Auto) 12.1 L 13.0 L (13.4-35.0) % Lymph # (Auto) 1.0 L 1.0 L (1.2-5.4) K/mm3 Seg Neutrophils % 81.8 H 81.2 H (40.0-70.0) % Urine WBC (Auto) 64.0 H (0.0-6.0) /HPF 12/19/21 Range/Units 05:27 RBC (3.65-5.03) M/mm3 Hgb 7.5 L (10.1-14.3) gm/dl Hct 23.7 L D (30.3-42.9) % MCH (28-32) pg RDW (13.2-15.2) % Lymph % (Auto) (13.4-35.0) % Lymph # (Auto) (1.2-5.4) K/mm3 Seg Neutrophils % (40.0-70.0) % Urine WBC (Auto) (0.0-6.0) /HPF
[2021-12-19] MEDS: PRENATAL VIT27-FE FUMARATE-FOLIC ACID VIT TAB PO SCH (09:25)
[2021-12-19] MEDS: IBUPROFEN 800 MG TAB PO SCH ×2 (09:25→18:23)
--- NOTE | 2021-12-19 09:26 | Discharge Summary ---
Providers - Providers Date of Admission: 12/18/21 15:36 Date of discharge: 12/20/21 Attending physician: ALBAN ALMENDAREZ MD 12/19/21 08:18 Consult to Case Management [CONS] Routine Services Needed at Discharge: Other Notified:: Natalee Phone number called:: [phone] Additional Physician Instructions: No PNC and needs assessment for home situation Primary care physician: FIELD RADIO OPERATOR Hospitalization Reason for admission: active labor, IUP at term Delivery: Episiotomy: none Laceration: 1st degree (labial.) Other procedures: none complications: none Discharge diagnosis: IUP at term delivered [place] baby: male Condition at discharge: Good Disposition: 01 HOME / SELF CARE / HOMELESS - Discharge Diagnoses (1) Active labor at term Status: Resolved (2) (vaginal after ) Status: Resolved Plan - Provider Discharge Summary Activity: routine, no sex for 6 weeks, no heavy lifting 4 weeks, no strenuous exercise Diet: routine Instructions: routine Additional instructions: [] Smoking cessation referral if applicable(refer to patient education folder f or contact #) [] Refer to [facility] Booklet Call your doctor immediately for: * Fever > 100.5 * Heavy vaginal bleeding ( >1 pad per hour) * Severe persistent headache * Shortness of breath * Reddened, hot, painful area to leg or breast * Drainage or odor from incision. * Keep incision clean and dry at all times and follow doctor's instructions regarding bathing/showering - Follow up plan Follow up: PRIMARY CAREMD [Primary Care Provider] - 7 Days
[2021-12-20] MEDS: IBUPROFEN 800 MG TAB PO SCH (09:16)
[2021-12-20] MEDS: PRENATAL VIT27-FE FUMARATE-FOLIC ACID VIT TAB PO SCH (09:16)
[2021-12-20 15:07] VITALS: BP 120/91
== END 2021-12-20 15:15 | disposition home or self-care (01) | DRG 807 ==
LOC: APU 12:48 → TRG 12:48 → APU 15:36 → OB 19:34
PROVIDERS: ADMIT Obstetrics & Gynecology; ATTEND Obstetrics & Gynecology
PROC: 10E0XZZ Delivery of Products of Conception, External Approach (ICD-10-PCS; principal; 2021-12-18)
DX: O34.211 Maternal care for low transverse scar from previous cesarean delivery (principal); Z37.0 Single live birth; O99.62 Diseases of the digestive system complicating childbirth; O70.0 First degree perineal laceration during delivery; Z3A.40 40 weeks gestation of pregnancy; Z20.822 Contact with and (suspected) exposure to COVID-19; K21.9 Gastro-esophageal reflux disease without esophagitis
CPT/HCPCS: 36415; 80307; 81001; 85014; 85018; 85025; 86592; 86706; 86762; 86850; 86900; 86901; 87086; 87806; G0378; Q0169; U0003